=== PATIENT | male | born 1950 | race Caucasian/White ===

== ENCOUNTER → 2016-11-21 | Outpatient (CLI) | payer OTHER | LOC: LAB 09:26 | DX: Z51.81 Encounter for therapeutic drug level monitoring (principal); I82.409 Acute embolism and thrombosis of unspecified deep veins of unspecified lower extremity ==

== ENCOUNTER → 2016-12-06 | Outpatient (CLI) | payer OTHER | LOC: LAB 09:09 | DX: I82.409 Acute embolism and thrombosis of unspecified deep veins of unspecified lower extremity (principal) ==

== ENCOUNTER → 2017-01-09 | Outpatient (CLI) | payer OTHER | LOC: LAB 09:08 | DX: I82.409 Acute embolism and thrombosis of unspecified deep veins of unspecified lower extremity (principal) ==

== ENCOUNTER → 2017-02-20 | Outpatient (CLI) | payer MEDICARE, OTHER | LOC: LAB 09:36 | DX: Z00.00 Encounter for general adult medical examination without abnormal findings (principal); Z12.11 Encounter for screening for malignant neoplasm of colon; I10 Essential (primary) hypertension ==

== ENCOUNTER → 2017-02-28 | Outpatient (CLI) | payer MEDICARE, OTHER | LOC: LAB 09:27 | DX: Z00.00 Encounter for general adult medical examination without abnormal findings (principal); Z12.11 Encounter for screening for malignant neoplasm of colon ==

== ENCOUNTER → 2017-04-01 | Outpatient (CLI) | payer MEDICARE, OTHER ==
[2017-04-01 10:18] LABS: PROTHROMBIN TIME 23.6 SECONDS (9.0-12.0)
== END ==
LOC: LAB 09:54
PROVIDERS: Internal Medicine
DX: I82.409 Acute embolism and thrombosis of unspecified deep veins of unspecified lower extremity (principal)

== ENCOUNTER → 2017-06-04 | Outpatient (CLI) | payer MEDICARE, OTHER | LOC: LAB 09:02 | PROVIDERS: Internal Medicine | DX: I82.409 Acute embolism and thrombosis of unspecified deep veins of unspecified lower extremity (principal) ==

== ENCOUNTER → 2017-06-12 | Outpatient (CLI) | payer MEDICARE, OTHER ==
[2017-06-12 09:39] LABS: PROTHROMBIN TIME 26.9 SECONDS (9.0-12.0)
== END ==
LOC: LAB 09:16
PROVIDERS: Internal Medicine
DX: I82.409 Acute embolism and thrombosis of unspecified deep veins of unspecified lower extremity (principal)

== ENCOUNTER → 2017-07-16 | Outpatient (CLI) | payer MEDICARE, OTHER ==
[2017-07-16 08:25] LABS: PROTHROMBIN TIME 24.7 SECONDS (9.0-12.0)
== END ==
LOC: LAB 07:37
PROVIDERS: Internal Medicine
DX: I82.409 Acute embolism and thrombosis of unspecified deep veins of unspecified lower extremity (principal)

== ENCOUNTER → 2017-08-26 | Outpatient (CLI) | payer MEDICARE, OTHER ==
[2017-08-26 08:03] LABS: PROTHROMBIN TIME 29.1 SECONDS (9.0-12.0)
== END ==
LOC: LAB 07:43
PROVIDERS: Internal Medicine
DX: I82.409 Acute embolism and thrombosis of unspecified deep veins of unspecified lower extremity (principal)

== ENCOUNTER → 2017-09-23 | Outpatient (CLI) | payer MEDICARE, OTHER ==
[2017-09-23 10:28] LABS: PROTHROMBIN TIME 23.2 SECONDS (9.0-12.0)
== END ==
LOC: LAB 09:25
PROVIDERS: Internal Medicine
DX: I82.409 Acute embolism and thrombosis of unspecified deep veins of unspecified lower extremity (principal)

== ENCOUNTER → 2017-11-15 | Outpatient (CLI) | payer MEDICARE, OTHER ==
[2017-11-15 08:30] LABS: PROTHROMBIN TIME 22.3 SECONDS (9.0-12.0)
== END ==
LOC: LAB 07:17
PROVIDERS: Internal Medicine
DX: I82.409 Acute embolism and thrombosis of unspecified deep veins of unspecified lower extremity (principal)

== ENCOUNTER → 2017-12-27 | Outpatient (CLI) | payer MEDICARE, OTHER ==
[2017-12-27 08:16] LABS: PROTHROMBIN TIME 29.3 SECONDS (9.0-12.0)
== END ==
LOC: LAB 07:15
PROVIDERS: Internal Medicine
DX: I82.409 Acute embolism and thrombosis of unspecified deep veins of unspecified lower extremity (principal)

== ENCOUNTER → 2018-01-29 | Outpatient (CLI) | payer MEDICARE, OTHER ==
[2018-01-29 08:10] LABS: PROTHROMBIN TIME 25.7 SECONDS (9.0-12.0)
== END ==
LOC: LAB 07:23
PROVIDERS: Internal Medicine
DX: I82.409 Acute embolism and thrombosis of unspecified deep veins of unspecified lower extremity (principal)

== ENCOUNTER → 2018-02-25 | Outpatient (CLI) | payer MEDICARE, OTHER ==
[2018-02-25 08:31] LABS: HEMATOCRIT 47.2 % (42.0-52.0); HEMOGLOBIN 15.7 g/dL (13.5-18.0); MEAN CELL VOLUME 90 fl (78-100); MEAN CORPUSCULAR HEMOGLOBIN 30 pg (27-31); MEAN CORPUSCULAR HGB CONC 33 g/dL (33-37); MEAN PLATELET VOLUME 9.6 fl (7.4-10.4); PLATELET COUNT 186 K/mm3 (130-400); RED BLOOD COUNT 5.27 M/mm3 (4.20-5.60); RED CELL DISTRIBUTION WIDTH 14.5 % (11.5-14.5); WHITE BLOOD COUNT 4.6 K/mm3 (4.8-10.8)
[2018-02-25 08:37] LABS: ALBUMIN 4.4 g/dL (3.5-5.0); CALCIUM 9.4 mg/dL (8.4-10.2); POTASSIUM 3.7 mmol/L (3.6-5.0); TOTAL BILIRUBIN 0.8 mg/dL (0.2-1.3); TOTAL PROTEIN 7.2 g/dL (6.3-8.2)
[2018-02-25 09:09] LABS: PROTHROMBIN TIME 32.9 SECONDS (9.0-12.0)
[2018-02-25 09:18] LABS: BAND 1 % (0-10); LYMPHOCYTE 25 % (20-51); MONOCYTE 18 % (3-10); NEUTROPHILS 54 % (42-75)
[2018-02-25 10:08] LABS: ERYTHROCYTE SEDIMENTATION RATE 1 mm/hr (0-20)
== END ==
LOC: LAB 07:35
PROVIDERS: Internal Medicine
DX: Z12.11 Encounter for screening for malignant neoplasm of colon (principal); Z00.00 Encounter for general adult medical examination without abnormal findings; I82.409 Acute embolism and thrombosis of unspecified deep veins of unspecified lower extremity

== ENCOUNTER → 2018-02-28 | Outpatient (CLI) | payer MEDICARE, OTHER | LOC: LAB 09:20 | DX: Z12.11 Encounter for screening for malignant neoplasm of colon (principal); Z00.00 Encounter for general adult medical examination without abnormal findings ==

== ENCOUNTER → 2018-04-09 | Outpatient (CLI) | payer MEDICARE, OTHER ==
[2018-04-09 09:34] LABS: PROTHROMBIN TIME 25.3 SECONDS (9.0-12.0)
== END ==
LOC: LAB 08:54
PROVIDERS: Internal Medicine
DX: I82.409 Acute embolism and thrombosis of unspecified deep veins of unspecified lower extremity (principal)

== ENCOUNTER → 2018-05-19 | Outpatient (CLI) | payer MEDICARE, OTHER ==
[2018-05-19 09:38] LABS: PROTHROMBIN TIME 21.5 SECONDS (9.0-12.0)
== END ==
LOC: LAB 09:18
PROVIDERS: Internal Medicine
DX: I82.409 Acute embolism and thrombosis of unspecified deep veins of unspecified lower extremity (principal)

== ENCOUNTER → 2018-07-21 | Outpatient (CLI) | payer MEDICARE, OTHER ==
[2018-07-21 09:51] LABS: PROTHROMBIN TIME 21.6 SECONDS (9.0-12.0)
== END ==
LOC: LAB 09:20
PROVIDERS: Internal Medicine
DX: I82.409 Acute embolism and thrombosis of unspecified deep veins of unspecified lower extremity (principal)

== ENCOUNTER → 2018-09-29 | Outpatient (CLI) | payer MEDICARE, OTHER ==
[2018-09-29 07:36] LABS: PROTHROMBIN TIME 19.3 SECONDS (9.0-12.0)
== END ==
LOC: LAB 07:00
PROVIDERS: Internal Medicine
DX: I82.409 Acute embolism and thrombosis of unspecified deep veins of unspecified lower extremity (principal)

== ENCOUNTER → 2018-11-12 | Outpatient (CLI) | payer MEDICARE, OTHER ==
[2018-11-12 09:01] LABS: PROTHROMBIN TIME 18.5 SECONDS (9.0-12.0)
== END ==
LOC: LAB 08:32
PROVIDERS: Internal Medicine
DX: I82.409 Acute embolism and thrombosis of unspecified deep veins of unspecified lower extremity (principal)

== ENCOUNTER → 2019-01-20 | Outpatient (CLI) | payer MEDICARE, OTHER ==
[2019-01-20 08:26] LABS: PROTHROMBIN TIME 27.4 SECONDS (9.0-12.0)
== END ==
LOC: LAB 07:38
PROVIDERS: Internal Medicine
DX: I82.409 Acute embolism and thrombosis of unspecified deep veins of unspecified lower extremity (principal)

== ENCOUNTER → 2019-02-19 | Outpatient (CLI) | payer MEDICARE, OTHER ==
[~2019-02-19] VITALS: Ht 170.2 cm; Wt 77.3 kg
[~2019-02-19] MED LIST: ASPIR LOW81 MG PO; ATORVASTATIN CA10 MG PO; COUMADIN 5MG5 MG/TAB PO; GOOD NEIGHBOR200 M1 PO; HYDROCHLOROTH12.5 M2 PO; LISINOPRIL10 MG PO
[2019-02-19 09:53] VITALS: BP 123/81
== END ==
LOC: AMSURD 09:30
DX: I25.10 Atherosclerotic heart disease of native coronary artery without angina pectoris (principal)

== ENCOUNTER → 2019-03-11 | Outpatient (CLI) | payer MEDICARE, OTHER ==
[2019-02-19 09:53] VITALS: BP 123/81
[2019-03-11 10:27] LABS: POTASSIUM 3.9 mmol/L (3.5-5.1)
[2019-03-11 10:28] LABS: ALBUMIN 4.3 g/dL (3.4-4.8)
[2019-03-11 10:29] LABS: CALCIUM 9.7 mg/dL (8.3-10.5)
[2019-03-11 10:30] LABS: HEMOGLOBIN 16.8 g/dL (13.5-18.0); MEAN CELL VOLUME 89 fl (78-100); MEAN CORPUSCULAR HEMOGLOBIN 30 pg (27-31); MEAN CORPUSCULAR HGB CONC 34 g/dL (33-37); MEAN PLATELET VOLUME 9.1 fl (7.4-10.4); PLATELET COUNT 188 K/mm3 (130-400); RED BLOOD COUNT 5.61 M/mm3 (4.20-5.60); RED CELL DISTRIBUTION WIDTH 14.3 % (11.5-14.5); TOTAL PROTEIN 7.2 g/dL (6.2-8.1); WHITE BLOOD COUNT 5.9 K/mm3 (4.8-10.8)
[2019-03-11 10:32] LABS: TOTAL BILIRUBIN 0.6 mg/dL (0.2-1.2)
[2019-03-11 10:59] LABS: LYMPHOCYTE 29 % (20-51); MONOCYTE 6 % (3-10); NEUTROPHILS 62 % (42-75)
[2019-03-11 11:07] LABS: PROTHROMBIN TIME 20.7 SECONDS (9.0-12.0)
[2019-03-11 11:28] LABS: ERYTHROCYTE SEDIMENTATION RATE 1 mm/hr (0-20)
== END ==
LOC: LAB 09:51
PROVIDERS: Internal Medicine
DX: Z00.00 Encounter for general adult medical examination without abnormal findings (principal); Z12.11 Encounter for screening for malignant neoplasm of colon; I82.409 Acute embolism and thrombosis of unspecified deep veins of unspecified lower extremity; I10 Essential (primary) hypertension

== ENCOUNTER → 2019-04-01 | Outpatient (CLI) | payer MEDICARE, OTHER ==
[2019-02-19 09:53] VITALS: BP 123/81
[2019-04-01 14:20] LABS: PROTHROMBIN TIME 21.7 SECONDS (9.0-12.0)
== END ==
LOC: LAB 06:17
PROVIDERS: Internal Medicine
DX: I82.409 Acute embolism and thrombosis of unspecified deep veins of unspecified lower extremity (principal)

== ENCOUNTER → 2019-04-07 | Outpatient (CLI) | payer MEDICARE, OTHER ==
[2019-02-19 09:53] VITALS: BP 123/81
== END ==
LOC: LAB 09:22
DX: Z00.00 Encounter for general adult medical examination without abnormal findings (principal); Z12.11 Encounter for screening for malignant neoplasm of colon; I82.409 Acute embolism and thrombosis of unspecified deep veins of unspecified lower extremity

== ENCOUNTER → 2019-05-22 | Outpatient (CLI) | payer MEDICARE, OTHER ==
[2019-02-19 09:53] VITALS: BP 123/81
[2019-05-22 08:01] LABS: PROTHROMBIN TIME 29.7 SECONDS (9.0-12.0)
== END ==
LOC: LAB 07:02
PROVIDERS: Internal Medicine
DX: I82.409 Acute embolism and thrombosis of unspecified deep veins of unspecified lower extremity (principal)

== ENCOUNTER → 2019-07-22 | Outpatient (CLI) | payer MEDICARE, OTHER ==
[2019-02-19 09:53] VITALS: BP 123/81
[2019-07-22 07:34] LABS: PROTHROMBIN TIME 19.3 SECONDS (9.0-12.0)
== END ==
LOC: LAB 07:11
PROVIDERS: Internal Medicine
DX: I82.409 Acute embolism and thrombosis of unspecified deep veins of unspecified lower extremity (principal)

== ENCOUNTER → 2019-09-07 | Outpatient (CLI) | payer MEDICARE, OTHER ==
[2019-02-19 09:53] VITALS: BP 123/81
[2019-09-07 08:35] LABS: PROTHROMBIN TIME 16.2 SECONDS (9.0-12.0)
== END ==
LOC: LAB 07:26
PROVIDERS: Internal Medicine
DX: I82.409 Acute embolism and thrombosis of unspecified deep veins of unspecified lower extremity (principal)

== ENCOUNTER → 2019-09-15 | Outpatient (CLI) | payer MEDICARE, OTHER ==
[2019-02-19 09:53] VITALS: BP 123/81
== END ==
LOC: LAB 07:40
PROVIDERS: Internal Medicine
DX: I82.409 Acute embolism and thrombosis of unspecified deep veins of unspecified lower extremity (principal)

== ENCOUNTER → 2019-10-22 | Outpatient (CLI) | payer MEDICARE, OTHER ==
[2019-02-19 09:53] VITALS: BP 123/81
[2019-10-22 09:23] LABS: PROTHROMBIN TIME 21.8 SECONDS (9.0-12.0)
== END ==
LOC: LAB 08:15
PROVIDERS: Internal Medicine
DX: I82.409 Acute embolism and thrombosis of unspecified deep veins of unspecified lower extremity (principal)

== ENCOUNTER → 2019-12-10 | Outpatient (CLI) | payer MEDICARE, OTHER ==
[2019-02-19 09:53] VITALS: BP 123/81
[2019-12-10 10:00] LABS: PROTHROMBIN TIME 19.3 SECONDS (9.0-12.0)
== END ==
LOC: LAB 09:00
PROVIDERS: Internal Medicine
DX: I82.409 Acute embolism and thrombosis of unspecified deep veins of unspecified lower extremity (principal)

== ENCOUNTER → 2020-02-15 | Outpatient (CLI) | payer MEDICARE, OTHER ==
[2019-02-19 09:53] VITALS: BP 123/81
[2020-02-15 14:57] LABS: PROTHROMBIN TIME 23.3 SECONDS (9.0-12.0)
== END ==
LOC: LAB 14:33
PROVIDERS: Internal Medicine
DX: I82.409 Acute embolism and thrombosis of unspecified deep veins of unspecified lower extremity (principal)

== ENCOUNTER → 2020-04-19 | Outpatient (CLI) | payer MEDICARE, OTHER ==
[2019-02-19 09:53] VITALS: BP 123/81
[2020-04-19 10:57] LABS: PROTHROMBIN TIME 23.4 SECONDS (9.0-12.0)
== END ==
LOC: LAB 10:06
PROVIDERS: Internal Medicine
DX: I82.409 Acute embolism and thrombosis of unspecified deep veins of unspecified lower extremity (principal)

== ENCOUNTER → 2020-04-27 | Outpatient (CLI) | payer MEDICARE, OTHER ==
[2019-02-19 09:53] VITALS: BP 123/81
[2020-04-27 08:02] LABS: HEMATOCRIT 47.4 % (42.0-52.0); HEMOGLOBIN 15.9 g/dL (13.5-18.0); MEAN CELL VOLUME 89 fl (78-100); MEAN CORPUSCULAR HEMOGLOBIN 30 pg (27-31); MEAN CORPUSCULAR HGB CONC 34 g/dL (33-37); MEAN PLATELET VOLUME 8.9 fl (7.4-10.4); PLATELET COUNT 213 K/mm3 (130-400); RED BLOOD COUNT 5.32 M/mm3 (4.20-5.60); RED CELL DISTRIBUTION WIDTH 14.2 % (11.5-14.5); WHITE BLOOD COUNT 6.6 K/mm3 (4.8-10.8)
[2020-04-27 08:18] LABS: POTASSIUM 4.2 mmol/L (3.5-5.1)
[2020-04-27 08:19] LABS: ALBUMIN 4.6 g/dL (3.4-4.8)
[2020-04-27 08:20] LABS: CALCIUM 9.4 mg/dL (8.3-10.5)
[2020-04-27 08:21] LABS: TOTAL PROTEIN 7.3 g/dL (6.2-8.1)
[2020-04-27 08:23] LABS: TOTAL BILIRUBIN 0.4 mg/dL (0.2-1.2)
[2020-04-27 09:00] LABS: PROTHROMBIN TIME 18.9 SECONDS (9.0-12.0)
[2020-04-27 09:33] LABS: ERYTHROCYTE SEDIMENTATION RATE 3 mm/hr (0-20)
== END ==
LOC: LAB 07:05
PROVIDERS: Internal Medicine
DX: Z12.11 Encounter for screening for malignant neoplasm of colon (principal); Z12.5 Encounter for screening for malignant neoplasm of prostate; I10 Essential (primary) hypertension; I82.409 Acute embolism and thrombosis of unspecified deep veins of unspecified lower extremity; I25.10 Atherosclerotic heart disease of native coronary artery without angina pectoris; E03.4 Atrophy of thyroid (acquired); K90.9 Intestinal malabsorption, unspecified

== ENCOUNTER → 2020-06-02 | Outpatient (CLI) | payer MEDICARE, OTHER ==
[2019-02-19 09:53] VITALS: BP 123/81
[2020-06-02 10:15] LABS: PROTHROMBIN TIME 23.1 SECONDS (9.0-12.0)
== END ==
LOC: LAB 09:20
PROVIDERS: Internal Medicine
DX: K90.9 Intestinal malabsorption, unspecified (principal); I82.409 Acute embolism and thrombosis of unspecified deep veins of unspecified lower extremity

== ENCOUNTER → 2020-07-27 | Outpatient (CLI) | payer MEDICARE, OTHER ==
[2019-02-19 09:53] VITALS: BP 123/81
[2020-07-27 12:02] LABS: PROTHROMBIN TIME 23.7 SECONDS (9.0-12.0)
== END ==
LOC: LAB 10:09
PROVIDERS: Internal Medicine
DX: I82.409 Acute embolism and thrombosis of unspecified deep veins of unspecified lower extremity (principal)

== ENCOUNTER → 2020-09-01 | Outpatient (CLI) | payer MEDICARE, OTHER ==
[2019-02-19 09:53] VITALS: BP 123/81
== END ==
LOC: LAB 09:13
PROVIDERS: Internal Medicine
DX: I82.409 Acute embolism and thrombosis of unspecified deep veins of unspecified lower extremity (principal)

== ENCOUNTER → 2020-10-06 | Outpatient (CLI) | payer MEDICARE, OTHER ==
[2019-02-19 09:53] VITALS: BP 123/81
[2020-10-06 10:34] LABS: PROTHROMBIN TIME 21.1 SECONDS (9.0-12.0)
== END ==
LOC: LAB 09:41
PROVIDERS: Internal Medicine
DX: I82.409 Acute embolism and thrombosis of unspecified deep veins of unspecified lower extremity (principal)

== ENCOUNTER → 2020-11-17 | Outpatient (CLI) | payer MEDICARE, OTHER ==
[2020-11-17 10:55] LABS: PROTHROMBIN TIME 18.2 SECONDS (9.0-12.0)
== END ==
LOC: LAB 10:03
PROVIDERS: Internal Medicine
DX: I82.409 Acute embolism and thrombosis of unspecified deep veins of unspecified lower extremity (principal)

== ENCOUNTER → 2021-01-12 | Outpatient (CLI) | payer MEDICARE, OTHER ==
[2021-01-12 09:17] LABS: PROTHROMBIN TIME 21.9 SECONDS (9.0-12.0)
== END ==
LOC: LAB 08:43
PROVIDERS: Internal Medicine
DX: I82.409 Acute embolism and thrombosis of unspecified deep veins of unspecified lower extremity (principal)

== ENCOUNTER → 2021-03-16 | Outpatient (CLI) | payer MEDICARE, OTHER ==
[2021-03-16 10:38] LABS: PROTHROMBIN TIME 22.7 SECONDS (9.0-12.0)
== END ==
LOC: LAB 09:40
PROVIDERS: Internal Medicine
DX: I82.409 Acute embolism and thrombosis of unspecified deep veins of unspecified lower extremity (principal)

== ENCOUNTER → 2021-05-16 | Outpatient (CLI) | payer MEDICARE, OTHER ==
[2021-05-16 08:50] LABS: BASO # 0.02 K/mm3 (0.02-0.10); EOS # 0.18 K/mm3 (0.04-0.40); EOS % 3.4 % (0.0-4.0); HEMOGLOBIN 15.7 g/dL (13.5-18.0); LYMPH# 1.39 K/mm3 (1.50-4.00); MEAN CELL VOLUME 93 fl (78-100); MEAN CORPUSCULAR HEMOGLOBIN 30 pg (27-31); MEAN CORPUSCULAR HGB CONC 33 g/dL (33-37); MONO # 0.77 K/mm3 (0.20-0.80); NEU # 2.88 K/mm3 (1.40-6.50); PLATELET COUNT 169 K/mm3 (130-400); RED BLOOD COUNT 5.18 M/mm3 (4.20-5.60); RED CELL DISTRIBUTION WIDTH 13.8 % (11.5-14.5); WHITE BLOOD COUNT 5.3 K/mm3 (4.8-10.8)
[2021-05-16 09:02] LABS: POTASSIUM 4.2 mmol/L (3.5-5.1)
[2021-05-16 09:03] LABS: ALBUMIN 4.3 g/dL (3.4-4.8)
[2021-05-16 09:04] LABS: CALCIUM 9.6 mg/dL (8.3-10.5)
[2021-05-16 09:05] LABS: TOTAL PROTEIN 6.9 g/dL (6.2-8.1)
[2021-05-16 09:07] LABS: TOTAL BILIRUBIN 0.6 mg/dL (0.2-1.2)
[2021-05-16 09:22] LABS: PROTHROMBIN TIME 25.2 SECONDS (9.0-12.0)
== END ==
LOC: LAB 08:31
PROVIDERS: Internal Medicine
DX: Z12.5 Encounter for screening for malignant neoplasm of prostate (principal); Z12.11 Encounter for screening for malignant neoplasm of colon; I25.10 Atherosclerotic heart disease of native coronary artery without angina pectoris; E03.4 Atrophy of thyroid (acquired); I82.409 Acute embolism and thrombosis of unspecified deep veins of unspecified lower extremity; K90.9 Intestinal malabsorption, unspecified

== ENCOUNTER → 2021-07-31 | Outpatient (CLI) | payer MEDICARE, OTHER ==
[2021-07-31 12:06] LABS: PROTHROMBIN TIME 23.7 SECONDS (9.0-12.0)
== END ==
LOC: LAB 09:10
PROVIDERS: Internal Medicine
DX: I82.409 Acute embolism and thrombosis of unspecified deep veins of unspecified lower extremity (principal)

== ENCOUNTER → 2021-09-21 | Outpatient (CLI) | payer MEDICARE, OTHER | LOC: RAD 11:14 | DX: M25.511 Pain in right shoulder (principal) ==

== ENCOUNTER 2021-10-31 09:45 | Outpatient (RCR) | payer MEDICARE, OTHER | END 2021-11-09 | disposition home or self-care (01) | LOC: PT | DX: M25.511 Pain in right shoulder (principal); Z96.611 Presence of right artificial shoulder joint ==

== ENCOUNTER → 2021-11-06 | Outpatient (CLI) | payer MEDICARE, OTHER ==
[2021-11-06 10:25] LABS: PROTHROMBIN TIME 17.2 SECONDS (9.0-12.0)
== END ==
LOC: LAB 10:00
PROVIDERS: Internal Medicine
DX: I82.409 Acute embolism and thrombosis of unspecified deep veins of unspecified lower extremity (principal)

== ENCOUNTER 2021-11-10 09:56 | Outpatient (RCR) | payer MEDICARE, OTHER | END 2021-11-17 17:00 | disposition home or self-care (01) | LOC: PT 09:56 | DX: M25.511 Pain in right shoulder (principal); Z89.232 Acquired absence of left shoulder ==

== ENCOUNTER → 2021-12-21 | Outpatient (CLI) | payer MEDICARE, OTHER ==
[2021-12-21 09:31] LABS: PROTHROMBIN TIME 19.9 SECONDS (9.0-12.0)
== END ==
LOC: LAB 08:57
PROVIDERS: Internal Medicine
DX: I82.409 Acute embolism and thrombosis of unspecified deep veins of unspecified lower extremity (principal)

== ENCOUNTER → 2022-01-09 | Outpatient (CLI) | payer MEDICARE, OTHER ==
[2022-01-09 09:25] LABS: PROTHROMBIN TIME 21.5 SECONDS (9.0-12.0)
== END ==
LOC: LAB 08:47
PROVIDERS: Internal Medicine
DX: I82.409 Acute embolism and thrombosis of unspecified deep veins of unspecified lower extremity (principal)

== ENCOUNTER → 2022-03-09 | Outpatient (CLI) | payer MEDICARE, OTHER | LOC: LAB 09:06 | PROVIDERS: Internal Medicine | DX: I82.409 Acute embolism and thrombosis of unspecified deep veins of unspecified lower extremity (principal) ==

== ENCOUNTER → 2022-05-31 | Outpatient (CLI) | payer MEDICARE, OTHER ==
[2022-05-31 09:45] LABS: PROTHROMBIN TIME 20.7 SECONDS (9.0-12.0)
== END ==
LOC: LAB 09:00
PROVIDERS: Internal Medicine
DX: I82.409 Acute embolism and thrombosis of unspecified deep veins of unspecified lower extremity (principal)

== ENCOUNTER → 2022-07-09 | Outpatient (CLI) | payer MEDICARE, OTHER ==
[2022-07-09 10:18] LABS: BASO # 0.01 K/mm3 (0.02-0.10); EOS # 0.13 K/mm3 (0.04-0.40); EOS % 2.1 % (0.0-4.0); HEMATOCRIT 48.9 % (42.0-52.0); HEMOGLOBIN 16.1 g/dL (13.5-18.0); LYMPH# 1.59 K/mm3 (1.50-4.00); MEAN CELL VOLUME 93 fl (78-100); MEAN CORPUSCULAR HEMOGLOBIN 31 pg (27-31); MEAN CORPUSCULAR HGB CONC 33 g/dL (33-37); MONO # 0.64 K/mm3 (0.20-0.80); NEU # 3.85 K/mm3 (1.40-6.50); PLATELET COUNT 198 K/mm3 (130-400); RED BLOOD COUNT 5.25 M/mm3 (4.20-5.60); RED CELL DISTRIBUTION WIDTH 13.7 % (11.5-14.5); WHITE BLOOD COUNT 6.3 K/mm3 (4.8-10.8)
[2022-07-09 10:22] LABS: ALBUMIN 4.7 g/dL (3.4-4.8); POTASSIUM 4.6 mmol/L (3.5-5.1)
[2022-07-09 10:23] LABS: CALCIUM 10.2 mg/dL (8.3-10.5)
[2022-07-09 10:25] LABS: TOTAL PROTEIN 7.5 g/dL (6.2-8.1)
[2022-07-09 10:27] LABS: TOTAL BILIRUBIN 0.6 mg/dL (0.2-1.2)
[2022-07-09 10:32] LABS: MAGNESIUM 1.73 mg/dL (1.60-2.60)
[2022-07-09 11:32] LABS: ERYTHROCYTE SEDIMENTATION RATE 5 mm/hr (0-20)
== END ==
LOC: LAB 09:48
PROVIDERS: Internal Medicine
DX: I25.10 Atherosclerotic heart disease of native coronary artery without angina pectoris (principal); E03.4 Atrophy of thyroid (acquired); I12.9 Hypertensive chronic kidney disease with stage 1 through stage 4 chronic kidney disease, or unspecified chronic kidney disease; N18.9 Chronic kidney disease, unspecified; I82.409 Acute embolism and thrombosis of unspecified deep veins of unspecified lower extremity; Z80.8 Family history of malignant neoplasm of other organs or systems

== ENCOUNTER → 2023-05-14 | Outpatient (CLI) | payer MEDICARE, OTHER ==
[~2023-05-14] MED LIST changes: +LORAZEPAM1 M1 PO; +NITROSTAT0.4 M1 SL; +NORVASC 10MG10 MG PO; +OMEPRAZOLE40 MG PO; +ROSUVASTATIN CA40 MG PO; +SILDENAFIL CITR25 MG PO; +SYNTHROID0.05 MG PO; +VITAMIN B122500 MC1 PO; +WARFARIN SODIU2.5 MG PO
[2023-05-14 12:19] LABS: PROTHROMBIN TIME 26.7 SECONDS (9.0-12.0)
== END ==
LOC: LAB 11:50
PROVIDERS: Internal Medicine
DX: I82.409 Acute embolism and thrombosis of unspecified deep veins of unspecified lower extremity (principal)

== ENCOUNTER → 2023-08-21 | Outpatient (CLI) | payer MEDICARE, OTHER | LOC: LAB 09:17 | DX: Z12.5 Encounter for screening for malignant neoplasm of prostate (principal); Z12.11 Encounter for screening for malignant neoplasm of colon; Z11.59 Encounter for screening for other viral diseases; E03.4 Atrophy of thyroid (acquired); I12.9 Hypertensive chronic kidney disease with stage 1 through stage 4 chronic kidney disease, or unspecified chronic kidney disease; N18.9 Chronic kidney disease, unspecified; I25.10 Atherosclerotic heart disease of native coronary artery without angina pectoris; R73.9 Hyperglycemia, unspecified; K90.9 Intestinal malabsorption, unspecified ==

== ENCOUNTER → 2024-05-05 | Outpatient (CLI) | payer MEDICARE, OTHER | LOC: LAB 08:41 | PROVIDERS: Internal Medicine | DX: I82.409 Acute embolism and thrombosis of unspecified deep veins of unspecified lower extremity (principal) ==

== ENCOUNTER → 2024-08-05 | Outpatient (CLI) | payer MEDICARE, OTHER ==
[2024-08-05 08:25] LABS: BASO # 0.01 K/mm3 (0.02-0.10); EOS # 0.14 K/mm3 (0.04-0.40); EOS % 2.7 % (0.0-4.0); HEMATOCRIT 47.3 % (42.0-52.0); HEMOGLOBIN 15.8 g/dL (13.5-18.0); LYMPH# 1.38 K/mm3 (1.50-4.00); MEAN CELL VOLUME 91 fl (78-100); MEAN CORPUSCULAR HEMOGLOBIN 31 pg (27-31); MEAN CORPUSCULAR HGB CONC 33 g/dL (33-37); MONO # 0.62 K/mm3 (0.20-0.80); PLATELET COUNT 176 K/mm3 (130-400); RED BLOOD COUNT 5.18 M/mm3 (4.20-5.60); RED CELL DISTRIBUTION WIDTH 13.6 % (11.5-14.5); WHITE BLOOD COUNT 5.2 K/mm3 (4.8-10.8)
[2024-08-05 08:31] LABS: ALBUMIN 4.6 g/dL (3.4-4.8)
[2024-08-05 08:32] LABS: CALCIUM 9.6 mg/dL (8.3-10.5)
[2024-08-05 08:33] LABS: TOTAL PROTEIN 7.5 g/dL (6.2-8.1)
[2024-08-05 08:35] LABS: TOTAL BILIRUBIN 0.7 mg/dL (0.2-1.2)
[2024-08-05 08:40] LABS: MAGNESIUM 1.68 mg/dL (1.60-2.60)
[2024-08-05 08:51] LABS: PROTHROMBIN TIME 24.5 SECONDS (9.0-12.0)
== END ==
LOC: LAB 08:08
PROVIDERS: Internal Medicine
DX: Z12.5 Encounter for screening for malignant neoplasm of prostate (principal); Z12.11 Encounter for screening for malignant neoplasm of colon; E03.4 Atrophy of thyroid (acquired); I10 Essential (primary) hypertension; I25.10 Atherosclerotic heart disease of native coronary artery without angina pectoris; K90.9 Intestinal malabsorption, unspecified; I82.409 Acute embolism and thrombosis of unspecified deep veins of unspecified lower extremity; N52.9 Male erectile dysfunction, unspecified